=== PATIENT | male | born 1995 | race African-American/Black ===

== ENCOUNTER 2016-04-23 18:10 | Emergency (ER) | payer OTHER ==
[2016-04-23] MEDS ORDERED: traMADol 50 MG TAB As Ordered ONE (20:01)
[2016-04-23] MEDS ORDERED: METHOCARBAMOL 500 MG TAB As Ordered ONE (20:01)
--- NOTE | 2016-04-23 21:00 | REPUSA ---
HISTORY: Trauma COMPARISON: None TECHNIQUE: Multiple thin-section contiguous helically-acquired axially-displayed computed tomographic images of the cervical spine are obtained from skull base inferiorly through T1, with images filmed at soft tissue and bone window. 2D Sagittal and coronal reformatted images are performed. FINDINGS: There is normal cervical vertebral body height and alignment on this supine, non-weight bearing exam. Vertebral body mineralization is normal. All of the intervertebral disc spaces have normal height and contour. There is no herniated nucleus p ulposus, canal or foraminal stenosis. No paraspinal masses or collections. IMPRESSION: No acute fracture. Thank you for your kind referral of this patient.
--- NOTE | 2016-04-23 22:00 | EDDOCDS ---
Physician Documentation [facility] Name: Lisa Corcoran Age: 20 yrs Sex: Male : 1995 Arrival Date: 04/23/2016 Time: 18:10 Bed PR Private MD: DOREEN Painter Disposition: 04/23/16 21:45 Discharged to Home/Self Care. Impression: Cervicalgia. - Condition is Stable. - Discharge Instructions: Soft Tissue Injury of the Neck. - Prescriptions for Robaxin 500 mg Oral Tablet - take 2 tablet by ORAL route every 6 hours As needed; 40 tablet. Ultram 50 mg Oral Tablet - take 1 tablet by ORAL route every 6 hours As needed MDD: 4 tabs; 10 tablet. - Medication Reconciliation, Local Pharmacy Hours form. - Follow up: DOREEN Painter; When: Tomorrow; Reason: Recheck today's complaints, Continuance of care. - Problem is new. - Symptoms have improved. - Notes: USE MEDICATION INSTRUCTED, FOLLOW UP WITH YOUR DOCTOR TOMORROW Historical: - Allergies: premaquin; - Home Meds: 1. ibuprofen 800 mg Oral tab 1 tab 3 times per day (Last dose: 04/23/2016 17:30) 2. Tylenol 325 mg Oral tab 2 tabs every 4 hours (Last dose: 04/23/2016 08:30) - PMHx: Chronic Back pain; - PSHx: none; - Social history: Smoking status: Patient uses tobacco products, light tobacco smoker. No barriers to communication noted, The patient speaks fluent Telugu, Speaks appropriately for age. - Family history: Not pertinent. - : The pt / caregiver states he / she is not on anticoagulants. Home medication list is obtained from the patient. - Exposure Risk Screening:: None identified. Vital Signs: 04/23 18:12 BP 161 / 86; Pulse 72; Resp 18; Temp 98.3; Pulse Ox 99% ; Weight 74.84 kg / 164.99 lbs; elp Height 5 ft. 10 in. (177.80 cm); Pain 9/10; 21:41 BP 139 / 72; Pulse 68; Resp 18; Temp 98.1(TE); Pulse Ox 98% on R/A; Pain 0/10; ttb 18:12 Body Mass Index 23.67 (74.84 kg, 177.80 cm) elp MDM: 19:58 Methocarbamol 1 grams PO once ordered. ck7 19:58 traMADol 50 mg PO once ordered. ck7 19:58 Apply Soft Collar to Patient. ordered. ck7 19:59 CT Spine,Cervical W/o Contrast Ordered. EDMS 20:14 [facility] Payment Agreement was scanned into [email or web address] and attached to record. gjb 20:14 Financial registration complete. gjb 21:38 CT Spine,Cervical W/o Contrast Reviewed. ck7 Administered Medications: 20:06 Drug: Methocarbamol 1 grams [methocarbamol 500 mg tablet (2 tabs)] Route: PO; ttb 20:06 Drug: traMADol 50 mg [tramadol 50 mg tablet (1 tabs)] Route: PO; ttb Signatures: Dispatcher [employer] EDMD Paula Dickerson, RN RN kmg1 Daniel Beaver RN RN mlb1 Jim Rebolledo, RPA-C RPA-Cck7 Maria M House RN RN ttb Keyonna Everett The chart was reviewed and I authenticate all verbal orders and agree with the evaluation and treatment provided.Attachments: 20:14 [facility] Payment Agreement gjb MTDD
--- NOTE | 2016-04-23 22:00 | EDDOCDS ---
Nurse's Notes [facility] Name: Lisa Corcoran Age: 20 yrs Sex: Male : 1995 Arrival Date: 04/23/2016 Time: 18:10 Bed PR Private MD: DOREEN Painter Diagnosis: Cervicalgia Presentation: 04/23 18:13 Presenting complaint: Patient states: Right side neck pain began 8 days ago. Adult mlb1 Sepsis Screening: The patient does not have new or worsening altered mentation. Patient's respiratory rate is less than 22. Systolic blood pressure is greater than 100. Patient has a qSOFA score of 0- Negative Sepsis Screen. Suicide/Homicide risk assessment- the patient denies having any suicidal and/or homicidal ideations and does not present with any other emotional, behavioral or mental health complaints. 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 Transition of care: patient was not received from another setting of care. 18:13 Acuity: DOMI Level 4 mlb1 18:13 Method Of Arrival: Walkin/Carried/Asstd mlb1 Triage Assessment: 18:15 General: Appears in no apparent distress, Behavior is appropriate for age, cooperative. mlb1 Pain: Location: left mid cervical area, right mid cervical area and right lateral aspect of neck Pain currently is 9 out of 10 on a pain scale. Pt Declines HIV testing. Neurological: No deficits noted. Historical: - Allergies: premaquin; - Home Meds: 1. ibuprofen 800 mg Oral tab 1 tab 3 times per day (Last dose: 04/23/2016 17:30) 2. Tylenol 325 mg Oral tab 2 tabs every 4 hours (Last dose: 04/23/2016 08:30) - PMHx: Chronic Back pain; - PSHx: none; - Social history: Smoking status: Patient uses tobacco products, light tobacco smoker. No barriers to communication noted, The patient speaks fluent Belizean, Speaks appropriately for age. - Family history: Not pertinent. - : The pt / caregiver states he / she is not on anticoagulants. Home medication list is obtained from the patient. - Exposure Risk Screening:: None identified. Screenin:56 Screening information is obtained from the patient. Fall risk: No risks identified. kmg1 Assistance ADL's: requires no assistance with activities of daily living. Abuse/DV Screen: The patient / caregiver reports he/she is: not in a situation that causes fear, pain or injury. Nutritional screening: No deficits noted. Advance Directives: There is no active DNR order. home support is adequate. Assessment: 19:46 General: Appears in no apparent distress, well nourished, well groomed, Behavior is ttb appropriate for age, cooperative, pleasant. Neurological: Level of Consciousness is awake, alert. Respiratory: Airway is patent Respiratory effort is even, unlabored. 20:06 General: pt given meds as ordered and collar applied. NAD noted. . Derm: Skin is ttb normal. Musculoskeletal: Range of motion limited in neck d/t stiffness. 21:56 Reassessment: Patient appears in no apparent distress at this time. Patient states kmg1 feeling better. Patient states symptoms have improved. Vital Signs: 18:12 BP 161 / 86; Pulse 72; Resp 18; Temp 98.3; Pulse Ox 99% ; Weight 74.84 kg; Height 5 ft. elp 10 in. (177.80 cm); Pain 9/10; 21:41 BP 139 / 72; Pulse 68; Resp 18; Temp 98.1(TE); Pulse Ox 98% on R/A; Pain 0/10; ttb 18:12 Body Mass Index 23.67 (74.84 kg, 177.80 cm) [facility] Vitals: 18:12 Log In Time: April 23, 2016 at 18:10. [facility] ED Course: 18:11 Patient visited by Annette Jane PCA. elp 18:11 Patient moved to Waiting elp 18:12 [facility] is Private Physician. elp 18:12 Patient visited by Annette Jane PCA. elp 18:12 Patient moved to Pre RCE elp 18:13 Patient visited by Daniel Beaver, ROSANNE. mlb1 18:14 Triage Initiated mlb1 18:16 Patient visited by Daniel Beaver, ROSANNE. mlb1 19:46 Patient visited by Maria M House RN. ttb 19:46 Patient visited by Maria M House, ROSANNE. ttb 19:46 Patient moved to Triage 2 ttb 19:48 [facility]C [facility] ck7 19:48 Eddie Hall MD is Attending Physician. ck7 19:48 Patient visited by Jim Rebolledo RPA-C. ck7 20:07 Patient visited by Maria M House RN. ttb 20:07 Patient moved to TR1 ttb 20:14 [facility] Payment Agreement was scanned into [employer] and attached to record. gjb 20:16 Patient name changed from Teyvon\S\Giovannykiem\S\Corcoran\S\ to Teyvon\S\ \S\Corcoran. EDMS 20:38 Patient visited by Jim Rebolledo RPA-C. ck7 21:14 CT Spine,Cervical W/o Contrast Returned. EDMS 21:33 Patient visited by Jim Rebolledo RPA-C. ck7 21:39 Patient moved to PR2 / 26 kmg1 21:41 Patient visited by Maria M House RN. ttb 21:45 [facility] is Referral Physician. ck7 21:56 The patient / caregiver is instructed regarding the plan of care and ED course. kmg1 21:56 No IV's were initiated during this patient's visit. No procedures done that require km assistance. Administered Medications: 20:06 Drug: Methocarbamol 1 grams [methocarbamol 500 mg tablet (2 tabs)] Route: PO; ttb 20:06 Drug: traMADol 50 mg [tramadol 50 mg tablet (1 tabs)] Route: PO; ttb Order Results: Radiology Order: CT Spine,Cervical W/o Contrast Test: CT Spine,Cervical W/o Contrast REASON FOR EXAMINATION: NECK PAIN; ; HISTORY: Trauma; COMPARISON: None; TECHNIQUE: Multiple thin-section contiguous helically-acquired axially-displayed computed tomographic; images of the cervical spine are obtained from skull base inferiorly through T1, with images filmed; at soft tissue and bone window. 2D Sagittal and coronal reformatted images are performed.; FINDINGS:; There is normal cervical vertebral body height and alignment on this supine, non-weight bearing exam.; ; Vertebral body mineralization is normal.; All of the intervertebral disc spaces have normal height and contour. There is no herniated nucleus p; ulposus, canal or foraminal stenosis.; No paraspinal masses or collections.; IMPRESSION:; No acute fracture.; Thank you for your kind referral of this patient.; ; Outcome: 21:45 Discharge ordered by Provider. ck7 21:56 Discharge Assessment: Patient awake, alert and oriented x 3. No cognitive and/or kmg1 functional deficits noted. Patient verbalized understanding of disposition instructions. Patient awake and alert. patient administered narcotics - yes. Pt provided with safe discharge. The following High Risk Discharge criteria are identified: None. Discharged to home ambulatory, with friend. Condition: stable. Discharge instructions given to patient, Instructed on discharge instructions, follow up and referral plans. medication usage, Demonstrated understanding of instructions, medications, Pt was receptive of discharge instructions/ teaching. Prescriptions given X 2. CT Study completed. Property sent home with patient. 21:59 Patient left the ED. [facility] Signatures: Dispatcher [employer] EDMS Paula Dickerson, RN RN kmg1 Daniel Beaver RN RN mlb1 Jim Rebolledo, RPA-C RPA-Cck7 Maria M House RN RN opheliab Annette Jane PCA PCA elp Beck, Gabriela gjb MTDClint
--- NOTE | 2016-04-25 22:59 | EDDOCDS ---
Physician Documentation [facility] Name: Lisa Corcoran Age: 20 yrs Sex: Male : 1995 Arrival Date: 04/23/2016 Time: 18:10 Bed PR Private MD: DOREEN Painter Disposition: 04/23/16 21:45 Discharged to Home/Self Care. Impression: Cervicalgia. - Condition is Stable. - Discharge Instructions: Soft Tissue Injury of the Neck. - Prescriptions for Robaxin 500 mg Oral Tablet - take 2 tablet by ORAL route every 6 hours As needed; 40 tablet. Ultram 50 mg Oral Tablet - take 1 tablet by ORAL route every 6 hours As needed MDD: 4 tabs; 10 tablet. - Medication Reconciliation, Local Pharmacy Hours form. - Follow up: DOREEN Painter; When: Tomorrow; Reason: Recheck today's complaints, Continuance of care. - Problem is new. - Symptoms have improved. - Notes: USE MEDICATION INSTRUCTED, FOLLOW UP WITH YOUR DOCTOR TOMORROW Historical: - Allergies: premaquin; - Home Meds: 1. ibuprofen 800 mg Oral tab 1 tab 3 times per day (Last dose: 04/23/2016 17:30) 2. Tylenol 325 mg Oral tab 2 tabs every 4 hours (Last dose: 04/23/2016 08:30) - PMHx: Chronic Back pain; - PSHx: none; - Social history: Smoking status: Patient uses tobacco products, light tobacco smoker. No barriers to communication noted, The patient speaks fluent Korean, Speaks appropriately for age. - Family history: Not pertinent. - : The pt / caregiver states he / she is not on anticoagulants. Home medication list is obtained from the patient. - Exposure Risk Screening:: None identified. Vital Signs: 04/23 18:12 BP 161 / 86; Pulse 72; Resp 18; Temp 98.3; Pulse Ox 99% ; Weight 74.84 kg / 164.99 lbs; elp Height 5 ft. 10 in. (177.80 cm); Pain 9/10; 21:41 BP 139 / 72; Pulse 68; Resp 18; Temp 98.1(TE); Pulse Ox 98% on R/A; Pain 0/10; ttb 18:12 Body Mass Index 23.67 (74.84 kg, 177.80 cm) elp MDM: 19:58 Methocarbamol 1 grams PO once ordered. ck7 19:58 traMADol 50 mg PO once ordered. ck7 19:58 Apply Soft Collar to Patient. ordered. ck7 19:59 CT Spine,Cervical W/o Contrast Ordered. EDMS :14 [facility] Payment Agreement was scanned into [employer] and attached to record. gjb :14 Financial registration complete. gjb 21:38 CT Spine,Cervical W/o Contrast Reviewed. ck7 04/24 11:18 T-Sheet-- Draft Copy was scanned into [employer] and attached to record. gb Administered Medications: 04/23 20:06 Drug: Methocarbamol 1 grams [methocarbamol 500 mg tablet (2 tabs)] Route: PO; ttb 20:06 Drug: traMADol 50 mg [tramadol 50 mg tablet (1 tabs)] Route: PO; ttb Signatures: Dispatcher [employer] EDMS Paula Dickerson RN RN kmg1 Olesya Hussein, Reg Reg Daniel Beaver RN RN mlb1 Jim Rebolledo, RPA-C RPA-Cck7 Maria M House RN RN ttb Keyonna Everett The chart was reviewed and I authenticate all verbal orders and agree with the evaluation and treatment provided.Attachments: : [facility] Payment Agreement [facility] 04/24 11:18 T-Sheet-- Draft Copy gb Chart Complete MTDD
--- NOTE | 2016-04-25 22:59 | EDDOCDS ---
Nurse's Notes [facility] Name: Lisa Corcoran Age: 20 yrs Sex: Male : 1995 Arrival Date: 04/23/2016 Time: 18:10 Bed PR Private MD: DOREEN Painter Diagnosis: Cervicalgia Presentation: 04/23 18:13 Presenting complaint: Patient states: Right side neck pain began 8 days ago. Adult mlb1 Sepsis Screening: The patient does not have new or worsening altered mentation. Patient's respiratory rate is less than 22. Systolic blood pressure is greater than 100. Patient has a qSOFA score of 0- Negative Sepsis Screen. Suicide/Homicide risk assessment- the patient denies having any suicidal and/or homicidal ideations and does not present with any other emotional, behavioral or mental health complaints. 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 Transition of care: patient was not received from another setting of care. 18:13 Acuity: DOMI Level 4 mlb1 18:13 Method Of Arrival: Walkin/Carried/Asstd mlb1 Triage Assessment: 18:15 General: Appears in no apparent distress, Behavior is appropriate for age, cooperative. mlb1 Pain: Location: left mid cervical area, right mid cervical area and right lateral aspect of neck Pain currently is 9 out of 10 on a pain scale. Pt Declines HIV testing. Neurological: No deficits noted. Historical: - Allergies: premaquin; - Home Meds: 1. ibuprofen 800 mg Oral tab 1 tab 3 times per day (Last dose: 04/23/2016 17:30) 2. Tylenol 325 mg Oral tab 2 tabs every 4 hours (Last dose: 04/23/2016 08:30) - PMHx: Chronic Back pain; - PSHx: none; - Social history: Smoking status: Patient uses tobacco products, light tobacco smoker. No barriers to communication noted, The patient speaks fluent Andorran, Speaks appropriately for age. - Family history: Not pertinent. - : The pt / caregiver states he / she is not on anticoagulants. Home medication list is obtained from the patient. - Exposure Risk Screening:: None identified. Screenin:56 Screening information is obtained from the patient. Fall risk: No risks identified. kmg1 Assistance ADL's: requires no assistance with activities of daily living. Abuse/DV Screen: The patient / caregiver reports he/she is: not in a situation that causes fear, pain or injury. Nutritional screening: No deficits noted. Advance Directives: There is no active DNR order. home support is adequate. Assessment: 19:46 General: Appears in no apparent distress, well nourished, well groomed, Behavior is ttb appropriate for age, cooperative, pleasant. Neurological: Level of Consciousness is awake, alert. Respiratory: Airway is patent Respiratory effort is even, unlabored. 20:06 General: pt given meds as ordered and collar applied. NAD noted. . Derm: Skin is ttb normal. Musculoskeletal: Range of motion limited in neck d/t stiffness. 21:56 Reassessment: Patient appears in no apparent distress at this time. Patient states kmg1 feeling better. Patient states symptoms have improved. Vital Signs: 18:12 BP 161 / 86; Pulse 72; Resp 18; Temp 98.3; Pulse Ox 99% ; Weight 74.84 kg; Height 5 ft. elp 10 in. (177.80 cm); Pain 9/10; 21:41 BP 139 / 72; Pulse 68; Resp 18; Temp 98.1(TE); Pulse Ox 98% on R/A; Pain 0/10; ttb 18:12 Body Mass Index 23.67 (74.84 kg, 177.80 cm) [facility] Vitals: 18:12 Log In Time: April 23, 2016 at 18:10. [facility] ED Course: 18:11 Patient visited by Annette Jane PCA. elp 18:11 Patient moved to Waiting elp 18:12 [facility] is Private Physician. elp 18:12 Patient visited by Annette Jane PCA. elp 18:12 Patient moved to Pre RCE elp 18:13 Patient visited by Daniel Beaver, ROSANNE. mlb1 18:14 Triage Initiated mlb1 18:16 Patient visited by Daniel Beaver, ROSANNE. mlb1 19:46 Patient visited by Maria M House RN. ttb 19:46 Patient visited by Maria M House, ROSANNE. ttb 19:46 Patient moved to Triage 2 ttb 19:48 [facility]led[facility]PA-C [facility] ck7 19:48 Eddie Hall MD is Attending Physician. ck7 19:48 Patient visited by Jim Rebolledo RPA-C. ck7 20:07 Patient visited by Maria M House RN. ttb 20:07 Patient moved to TR1 ttb 20:14 [facility] Payment Agreement was scanned into [employer] and attached to record. gjb 20:16 Patient name changed from Teyvon\S\Giovannykiem\S\Corcoran\S\ to Teyvon\S\ \S\Corcoran. EDMS 20:38 Patient visited by Jim Rebolledo RPA-C. ck7 21:14 CT Spine,Cervical W/o Contrast Returned. EDMS 21:33 Patient visited by Jim Rebolledo RPA-C. ck7 21:39 Patient moved to PR kmg1 21:41 Patient visited by Maria M House RN. ttb 21:45 [facility] is Referral Physician. ck7 21:56 The patient / caregiver is instructed regarding the plan of care and ED course. kmg1 21:56 No IV's were initiated during this patient's visit. No procedures done that require [facility] assistance. 04/24 11:18 T-Sheet-- Draft Copy was scanned into [employer] and attached to record. gb Administered Medications: 04/23 20:06 Drug: Methocarbamol 1 grams [methocarbamol 500 mg tablet (2 tabs)] Route: PO; ttb 20:06 Drug: traMADol 50 mg [tramadol 50 mg tablet (1 tabs)] Route: PO; ttb Order Results: Radiology Order: CT Spine,Cervical W/o Contrast Test: CT Spine,Cervical W/o Contrast REASON FOR EXAMINATION: NECK PAIN; ; HISTORY: Trauma; COMPARISON: None; TECHNIQUE: Multiple thin-section contiguous helically-acquired axially-displayed computed tomographic; images of the cervical spine are obtained from skull base inferiorly through T1, with images filmed; at soft tissue and bone window. 2D Sagittal and coronal reformatted images are performed.; FINDINGS:; There is normal cervical vertebral body height and alignment on this supine, non-weight bearing exam.; ; Vertebral body mineralization is normal.; All of the intervertebral disc spaces have normal height and contour. There is no herniated nucleus p; ulposus, canal or foraminal stenosis.; No paraspinal masses or collections.; IMPRESSION:; No acute fracture.; Thank you for your kind referral of this patient.; ; Outcome: 21:45 Discharge ordered by Provider. ck7 21:56 Discharge Assessment: Patient awake, alert and oriented x 3. No cognitive and/or kmg1 functional deficits noted. Patient verbalized understanding of disposition instructions. Patient awake and alert. patient administered narcotics - yes. Pt provided with safe discharge. The following High Risk Discharge criteria are identified: None. Discharged to home ambulatory, with friend. Condition: stable. Discharge instructions given to patient, Instructed on discharge instructions, follow up and referral plans. medication usage, Demonstrated understanding of instructions, medications, Pt was receptive of discharge instructions/ teaching. Prescriptions given X 2. CT Study completed. Property sent home with patient. 21:59 Patient left the ED. [facility] Signatures: Dispatcher [employer] EDMS Paula Dickerson, RN RN kmg1 Olesya Hussein, Reg Reg Daniel Beaver RN RN mlb1 Jim Rebolledo, RPA-C RPA-Cck7 Maria M House, ROSANNE RN opheliab Annette Jane, TECHNOLOGY CONSULTANT TECHNOLOGY CONSULTANT Keyonna Shah Chart Complete MTDD
--- NOTE | 2016-04-25 22:59 | EDDOCDS ---
Physician Documentation [facility] Name: Lisa Corcoran Age: 20 yrs Sex: Male : 1995 Arrival Date: 04/23/2016 Time: 18:10 Bed PR Private MD: DOREEN Painter Disposition: 04/23/16 21:45 Discharged to Home/Self Care. Impression: Cervicalgia. - Condition is Stable. - Discharge Instructions: Soft Tissue Injury of the Neck. - Prescriptions for Robaxin 500 mg Oral Tablet - take 2 tablet by ORAL route every 6 hours As needed; 40 tablet. Ultram 50 mg Oral Tablet - take 1 tablet by ORAL route every 6 hours As needed MDD: 4 tabs; 10 tablet. - Medication Reconciliation, Local Pharmacy Hours form. - Follow up: DOREEN Painter; When: Tomorrow; Reason: Recheck today's complaints, Continuance of care. - Problem is new. - Symptoms have improved. - Notes: USE MEDICATION INSTRUCTED, FOLLOW UP WITH YOUR DOCTOR TOMORROW Historical: - Allergies: premaquin; - Home Meds: 1. ibuprofen 800 mg Oral tab 1 tab 3 times per day (Last dose: 04/23/2016 17:30) 2. Tylenol 325 mg Oral tab 2 tabs every 4 hours (Last dose: 04/23/2016 08:30) - PMHx: Chronic Back pain; - PSHx: none; - Social history: Smoking status: Patient uses tobacco products, light tobacco smoker. No barriers to communication noted, The patient speaks fluent Georgian, Speaks appropriately for age. - Family history: Not pertinent. - : The pt / caregiver states he / she is not on anticoagulants. Home medication list is obtained from the patient. - Exposure Risk Screening:: None identified. Vital Signs: 04/23 18:12 BP 161 / 86; Pulse 72; Resp 18; Temp 98.3; Pulse Ox 99% ; Weight 74.84 kg / 164.99 lbs; elp Height 5 ft. 10 in. (177.80 cm); Pain 9/10; 21:41 BP 139 / 72; Pulse 68; Resp 18; Temp 98.1(TE); Pulse Ox 98% on R/A; Pain 0/10; ttb 18:12 Body Mass Index 23.67 (74.84 kg, 177.80 cm) elp MDM: 19:58 Methocarbamol 1 grams PO once ordered. ck7 19:58 traMADol 50 mg PO once ordered. ck7 19:58 Apply Soft Collar to Patient. ordered. ck7 19:59 CT Spine,Cervical W/o Contrast Ordered. EDMS :14 [facility] Payment Agreement was scanned into [employer] and attached to record. gjb :14 Financial registration complete. gjb 21:38 CT Spine,Cervical W/o Contrast Reviewed. ck7 04/24 11:18 T-Sheet-- Draft Copy was scanned into [employer] and attached to record. gb Administered Medications: 04/23 20:06 Drug: Methocarbamol 1 grams [methocarbamol 500 mg tablet (2 tabs)] Route: PO; ttb 20:06 Drug: traMADol 50 mg [tramadol 50 mg tablet (1 tabs)] Route: PO; ttb Signatures: Dispatcher [employer] EDMS Paula Dickerson RN RN kmg1 Olesya Hussein, Reg Reg Daniel Beaver RN RN mlb1 Jim Rebolledo, RPA-C RPA-Cck7 Maria M House RN RN ttb Keyonna Everett The chart was reviewed and I authenticate all verbal orders and agree with the evaluation and treatment provided.Attachments: : [facility] Payment Agreement [facility] 04/24 11:18 T-Sheet-- Draft Copy gb Chart Complete MTDD
== END 2016-04-23 21:59 | disposition home or self-care (01) ==
LOC: M ED 18:10
DX: M54.2 Cervicalgia (principal); G89.29 Other chronic pain; Z79.1 Long term (current) use of non-steroidal anti-inflammatories (NSAID); Z88.8 Allergy status to other drugs, medicaments and biological substances; F17.210 Nicotine dependence, cigarettes, uncomplicated